=== PATIENT | male | born 1965 | race Caucasian/White ===

== ENCOUNTER 2022-06-09 07:23 | Outpatient (CLI) | payer BC | END 2022-06-09 07:24 | disposition home or self-care (01) | LOC: BICCT 07:23 | PROVIDERS: ATTEND Internal Medicine | DX: R91.1 Solitary pulmonary nodule (principal) | CPT/HCPCS: 71250 ==

== ENCOUNTER 2023-02-12 15:40 | Emergency (ER) | payer BC ==
[2023-02-12] MEDS ORDERED: Tranexamic Acid 1,000 MG/10 ML VIAL ONE (16:08)
[2023-02-12] MEDS ORDERED: Oxymetazoline HCl 0.05% (30 ML BOT) ONE (16:08)
[2023-02-12 16:47] LABS: #Eosinphils 0.1 thou/uL (0.0-0.7); #Lymphocytes 1.7 thou/uL (1.20-3.40); #Monocytes 0.9 thou/uL (0.11-0.59); %Basophils 0.5 % (0.0-1.0); %Eosinophils 1.4 % (0.0-10.0); %Lymphocytes 22.1 % (21.0-51.0); %Monocytes 11.3 % (0.0-10.0); %Neutrophils 64.7 % (42.0-75.0); Mean Corpuscular HGB CONC 34.7 g/dL (32.0-36.0); Mean Corpuscular Hemoglobin 32.8 pg (27.0-31.0); Mean Corpuscular Volume 94.6 fl (78.0-98.0); Mean Platelet Volume 7.5 fL (7.4-10.4); Platelet Count 163 10x3/uL (130-400); RBC Distribution Width 11.8 % (11.5-14.5); Red Blood Cell (RBC) Count 4.25 mill/uL (4.70-6.10); White Blood Cell (WBC) Count 7.7 10x3/uL (4.8-10.8)
[2023-02-12 16:56] LABS: INR-International Normal Ratio 0.9; Prothrombin Time 12.8 sec (12.0-14.7)
[2023-02-12 16:57] LABS: PTT 25.8 sec (22.9-36.1)
[2023-02-12 17:10] LABS: ALT (SGPT) 27 U/L (8-55); AST (SGOT) 30 U/L (5-34); Albumin 4.2 g/dL (3.5-5.0); Alkaline Phosphatase 28 U/L (40-110); Anion Gap 13 mmol/L (10-20); BUN (Urea Nitrogen) 28 mg/dL (8.4-25.7); Bilirubin, Total 0.5 mg/dL (0.2-1.2); Calc. Creatinine Clearance 0 mL/min (70-130); Calcium 9.3 mg/dL (7.8-10.44); Carbon Dioxide 27 mmol/L (22-29); Chloride 102 mmol/L (98-107); Estimated GFR 86; Globulin 2.7 g/dL (2.4-3.5); Glucose 104 mg/dL (70-105); Potassium 4.6 mmol/L (3.5-5.1); Protein, Total 6.9 g/dL (6.0-8.3); Sodium 137 mmol/L (136-145)
[2023-02-12] MEDS ORDERED: Ondansetron ODT 4 MG TAB ONE (17:18)
[2023-02-12] MEDS ORDERED: Morphine 4 MG/ML VIAL ONE (18:05)
[2023-02-12] MEDS ORDERED: Silver Nitrate Application 1 EACH ONE (18:13)
== END 2023-02-12 18:45 | disposition home or self-care (01) ==
LOC: ERS 15:40
DX: R04.0 Epistaxis (principal); I10 Essential (primary) hypertension; E78.5 Hyperlipidemia, unspecified; Z87.891 Personal history of nicotine dependence
CPT/HCPCS: 36415; 80053; 85025; 85610; 85730; 96372; 99283; J2270; Q0162

== ENCOUNTER 2024-05-27 14:50 | Outpatient (CLI) | payer BC ==
[2024-05-27 15:31] LABS: Hematocrit 41.4 % (38.8-50.0); Hemoglobin 14.9 g/dL (13.5-17.5); Mean Corpuscular Hemoglobin 31.7 pg (27.0-33.0); Mean Corpuscular Volume 88.1 fL (81.2-95.1); Mean Platelet Volume 9.3 fL (7.4-10.4); Platelet Count 167 10x3/uL (150-450); White Blood Cell (WBC) Count 5.7 10x3/uL (3.5-10.5)
[2024-05-27 15:54] LABS: Anion Gap 12 mmol/L (10-20); BUN (Urea Nitrogen) 24 mg/dL (8.4-25.7); Calc. Creatinine Clearance 0 mL/min (70-130); Calcium 9.9 mg/dL (7.8-10.44); Carbon Dioxide 26 mmol/L (22-29); Chloride 105 mmol/L (98-107); Estimated GFR 73; Glucose 106 mg/dL (70-105); Potassium 4.1 mmol/L (3.5-5.1); Sodium 139 mmol/L (136-145)
== END 2024-05-27 14:51 | disposition home or self-care (01) ==
LOC: LABBT 14:50
PROVIDERS: ATTEND Otolaryngology Plastic Surgery within the Head & Neck
DX: Z01.818 Encounter for other preprocedural examination (principal); J32.1 Chronic frontal sinusitis; J32.2 Chronic ethmoidal sinusitis; J32.0 Chronic maxillary sinusitis; J34.3 Hypertrophy of nasal turbinates; J34.2 Deviated nasal septum; J33.0 Polyp of nasal cavity
CPT/HCPCS: 80048; 85027; 93005; 93010

== ENCOUNTER 2024-06-01 10:24 | Day surgery (SDC) | payer BC ==
[2024-05-27 15:13] VITALS: BMI 23.7
[2024-06-01] MEDS ORDERED: fentaNYL PF 100 MCG/2 ML SYRINGE ONE (13:16)
[2024-06-01] MEDS ORDERED: Ondansetron PF 4 MG/2 ML Vial ONE (13:16)
[2024-06-01] MEDS ORDERED: PROPOFOL 20 ML ONE (13:16)
[2024-06-01] MEDS ORDERED: Rocuronium Bromide 10 MG/ML (10ML VIAL) ONE (13:16)
[2024-06-01] MEDS ORDERED: Midazolam HCl 2 mg/2 ml Vial ONE (13:16)
[2024-06-01] MEDS ORDERED: Lidocaine 1% PF 5 ML VIAL ONE (13:16)
[2024-06-01] MEDS ORDERED: Dexamethasone 20 MG/5 ML VIAL ONE (13:16)
[2024-06-01] MEDS ORDERED: fentaNYL 50 mcg/mL 1 mL Vial ONE ×2 (13:20→15:12)
[2024-06-01] MEDS ORDERED: EPINEPHrine 1 MG/ML VIAL ONE (13:37)
[2024-06-01] MEDS ORDERED: Oxymetazoline HCl 0.05% (30 ML BOT) ONE (13:38)
[2024-06-01] MEDS ORDERED: Lidocaine 1% (PF) 30 ML VIAL ONE (13:38)
[2024-06-01] MEDS ORDERED: Bacitracin Zinc Ointment 30 gm TUBE ONE (13:38)
[2024-06-01] MEDS ORDERED: PHENYLEPHRINE-NS 100 MCG/ML 10 ML SYRINGE ONE (13:45)
[2024-06-01] MEDS ORDERED: SUGAMMADEX SODIUM 200 MG/2 ML VIAL ONE (14:16)
[2024-06-01] MEDS ORDERED: Labetalol HCl 100 MG/20 ML VIAL ONE (16:07)
== END 2024-06-01 17:15 | disposition home or self-care (01) ==
LOC: SDC 10:24
PROVIDERS: ATTEND Otolaryngology Plastic Surgery within the Head & Neck
DX: J34.2 Deviated nasal septum (principal); J34.3 Hypertrophy of nasal turbinates; J32.8 Other chronic sinusitis; D18.09 Hemangioma of other sites; J33.0 Polyp of nasal cavity; Z88.0 Allergy status to penicillin; Z90.89 Acquired absence of other organs; Z95.0 Presence of cardiac pacemaker
CPT/HCPCS: 88305; J0171; J1100; J2001; J2250; J2405; J2704; J3010